=== PATIENT | female | born 1975 | race Asian ===

== ENCOUNTER 2021-10-16 13:00 | Inpatient (IN) | payer BC ==
[2021-10-16] MEDS ORDERED: OXYTOCIN 30 UNITS in 0.9% NS 30 UNIT/500 ML INFUS.BAG IVPB SCH (13:30)
[2021-10-16] MEDS ORDERED: ELECTROLYTE-148 SOLN 1,000 ML IV SCH (13:30)
[2021-10-16 14:35] VITALS: BMI 26.2
[2021-10-16] MEDS ORDERED: OXYTOCIN 30 UNITS in 0.9% NS 30 UNIT/500 ML INFUS.BAG IVPB ONE ×2 (14:39→15:52)
[2021-10-16] MEDS ORDERED: NIFEdipine E.R. 30 MG TABLET ONE (14:39)
[2021-10-16] MEDS: NIFEdipine E.R. 30 MG TABLET PO SCH (14:45)
[2021-10-16 15:17] LABS: ACTIVATED PTT 28.5 SECONDS (25.2-36.5); INR 0.9 (0.83-1.09); PROTHROMBIN TIME (PATIENT) 10.3 SEC (9.7-13.0)
[2021-10-16 15:18] LABS: BASO % 0.2 % (0-2.0); EOS % 0.6 % (0-4.5); HEMATOCRIT 34.1 % (32.4-45.2); HEMOGLOBIN 11.5 GM/dL (10.7-15.3); MCH 30.4 pg (25.7-33.7); MCHC 33.7 g/dl (32.0-36.0); MEAN CELL VOLUME 90.2 fl (80-96); MEAN PLT VOLUME 8.4 fl (7.5-11.1); MONO % 6.2 % (3.8-10.2); PLATELET COUNT 240 10^3/uL (134-434); RBC 3.79 M/mm3 (3.60-5.2); RDW 13.8 % (11.6-15.6); WHITE BLOOD COUNT 7.7 K/mm3 (4.0-10.0)
[2021-10-16] MEDS ORDERED: FENTANYL/BUPIVACAINE/NS/PF - PCEA - 50 ML DISP.SYRIN EP ONE (15:26)
[2021-10-16 15:27] LABS: RETICULOCYTES 2.19 % (0.5-1.5)
[2021-10-16] MEDS ORDERED: BUPIVACAINE HCL/PF 0.25% (2.5MG/ML) 10 ML VIAL ONE (15:35)
[2021-10-16 15:43] LABS: CALCIUM 9.2 mg/dL (8.5-10.1)
[2021-10-16 15:44] LABS: BLOOD UREA NITROGEN 8.9 mg/dL (7-18)
[2021-10-16 15:47] LABS: URIC ACID 4.5 mg/dL (2.6-7.2)
[2021-10-16 15:48] LABS: CREATININE 0.4 mg/dL (0.55-1.3)
[2021-10-16] MEDS ORDERED: MISOPROSTOL 200 MCG TABLET ONE (15:52)
[2021-10-16] MEDS ORDERED: LIDOCAINE HCL 1% PRESERVATIVE FREE - 30ML VIAL ONE (15:52)
[2021-10-16] MEDS ORDERED: NALOXONE HCL 0.4 MG/ML VIAL IVPUSH PRN (15:55)
[2021-10-16] MEDS ORDERED: FENTANYL/BUPIVACAINE/NS/PF - PCEA - 50 ML DISP.SYRIN EP SCH (16:00)
[2021-10-16] MEDS ORDERED: BENZOCAINE 28 GM HEMORRHOIDAL OINTMENT TP PRN (16:21)
[2021-10-16] MEDS ORDERED: METHYLERGONOVINE MALEATE 0.2 MG/1 ML AMP IM PRN (16:21)
[2021-10-16] MEDS ORDERED: BISACODYL 10 MG SUPP.RECT RC PRN (16:21)
[2021-10-16] MEDS ORDERED: BENZOCAINE 20% 57 GM BOTTLE TP PRN (16:21)
[2021-10-16] MEDS ORDERED: WITCH HAZEL 50% (TUCKS) 40 PAD/JAR PAD TP PRN (16:21)
[2021-10-16] MEDS ORDERED: ACETAMINOPHEN 325 MG TABLET (FP) PO PRN (16:21)
[2021-10-16] MEDS ORDERED: oxyCODONE HCL 5 MG TABLET PO PRN (16:21)
[2021-10-16] MEDS ORDERED: MISOPROSTOL 200 MCG TABLET PV ONE (16:23)
[2021-10-16] MEDS ORDERED: OXYTOCIN 20 UNITS in 0.9% NS 20 UNIT/1,000 ML INFUS.BAG IV SCH (16:30)
[2021-10-16 16:33] LABS: SYPHILIS W/ RPR CONF NON-REACTIVE (NONREACTIVE)
[2021-10-16 17:03] LABS: HIV INTERPRETATION NEGATIVE (NEGATIVE)
[2021-10-16] MEDS ORDERED: IBUPROFEN 600 MG TABLET (FP) PO ONE (17:33)
[2021-10-16] MEDS: IBUPROFEN 600 MG TABLET (FP) PO PRN (17:40)
[2021-10-16] MEDS: LABETALOL HCL 200 MG TABLET (FP) PO SCH (21:07)
[2021-10-17] MEDS: IBUPROFEN 600 MG TABLET (FP) PO PRN ×4 (00:04→21:17)
[2021-10-17 07:54] LABS: BASO % 0.5 % (0-2.0); EOS % 0.7 % (0-4.5); HEMATOCRIT 32.3 % (32.4-45.2); LYMPH % 14.7 % (8-40); MCH 30.9 pg (25.7-33.7); MCHC 34.1 g/dl (32.0-36.0); MEAN CELL VOLUME 90.6 fl (80-96); MEAN PLT VOLUME 8.2 fl (7.5-11.1); MONO % 6.3 % (3.8-10.2); NEUT % 77.8 % (42.8-82.8); PLATELET COUNT 196 10^3/uL (134-434); RBC 3.57 M/mm3 (3.60-5.2); RDW 14.1 % (11.6-15.6); WHITE BLOOD COUNT 7.8 K/mm3 (4.0-10.0)
[2021-10-17] MEDS: NIFEdipine E.R. 30 MG TABLET PO SCH (09:53)
[2021-10-17] MEDS: PRENATAL VITAMINS W/ FOLIC ACID TABLET (FP) PO SCH (09:53)
[2021-10-17] MEDS ORDERED: NIFEdipine E.R. 30 MG TABLET PO SCH (10:00)
[2021-10-17] MEDS: LABETALOL HCL 200 MG TABLET (FP) PO SCH (10:50)
[2021-10-17] MEDS ORDERED: LABETALOL HCL 200 MG TABLET (FP) PO ONE (14:40)
[2021-10-17] MEDS ORDERED: LABETALOL HCL 200 MG TABLET (FP) PO PRN (17:20)
[2021-10-17] MEDS ORDERED: SENNOSIDES/DOCUSATE COMBO (SENNA PLUS) TABLET (UD) PO PRN (22:00)
[2021-10-18 08:56] VITALS: TEMP 97.9
[2021-10-18] MEDS: IBUPROFEN 600 MG TABLET (FP) PO PRN ×2 (09:16→16:22)
[2021-10-18] MEDS: PRENATAL VITAMINS W/ FOLIC ACID TABLET (FP) PO SCH (09:16)
[2021-10-18] MEDS: NIFEdipine E.R. 30 MG TABLET PO SCH (09:16)
[2021-10-18 13:48] VITALS: BP 127/75; PULSE 58
== END 2021-10-18 17:40 | disposition home or self-care (01) | DRG 807 ==
LOC: JLDR 13:00 → J3W 17:45
PROVIDERS: ADMIT Obstetrics & Gynecology; ATTEND Obstetrics & Gynecology
PROC: 10E0XZZ Delivery of Products of Conception, External Approach (ICD-10-PCS; principal; 2021-10-16)
DX: O14.04 Mild to moderate pre-eclampsia, complicating childbirth (principal); Z37.0 Single live birth; Z3A.38 38 weeks gestation of pregnancy
CPT/HCPCS: 36415; 59409; 80048; 82977; 83010; 84450; 84460; 84550; 85025; 85045; 85610; 85730; 86780; 86850; 86900; 86901; 87389; C9803-CS; U0003; U0005